=== PATIENT | female | born 1965 ===

== ENCOUNTER 2018-04-17 23:35 | Emergency (ER) | payer BC ==
[2018-04-17 23:44] VITALS: PULSE 59; RESP 22; TEMP 97.7; O2SAT 95
[2018-04-18 00:08] VITALS: BP 178/104
--- NOTE | 2018-04-18 00:20 | C.PDOC ---
History Of Present Illness 52 year old female was cutting a salad and cut her left index and middle fingers. Denies weakness or numbness. Time Seen by Provider: 04/18/18 00:05 Chief Complaint (Nursing): Abnormal Skin Integrity History Per: Patient History/Exam Limitations: no limitations Onset/Duration Of Symptoms: Hrs Current Symptoms Are (Timing): Still Present Location Of Injury: Left: Hand (Index and middle fingers) Quality Of Symptoms: Other (Laceration) Recent travel outside of the [place]: No Past Medical History Reviewed: Historical Data, Nursing Documentation, Vital Signs Vital Signs: Last Vital Signs Temp 97.7 F 04/17/18 23:38 Pulse 59 L 04/17/18 23:38 Resp 22 04/17/18 23:38 BP 195/114 H 04/17/18 23:38 Pulse Ox 95 04/17/18 23:38 - Medical History PMH: HTN Denies: Chronic Kidney Disease - [facility] Procedures PERCUTAN NEEDLE BIOPSY OF BREAST (10/23/13) Family History: States: No Known Family Hx - Social History Hx Alcohol Use: No Hx Substance Use: No - Immunization History Hx Tetanus Toxoid Vaccination: No Hx Influenza Vaccination: No Hx Pneumococcal Vaccination: No Review Of Systems Skin: Positive for: Other (Lacerations) Neurological: Negative for: Weakness, Numbness Physical Exam - Physical Exam Appears: Non-toxic Skin: Warm, Dry Extremity: Capillary Refill (<2 seconds), Other (1cm lacerations to fat pad left index and middle finger. No nailbed involvement.) Pulses: Left Radial: Normal, Right Radial: Normal Neurological/Psych: Oriented x3, Normal Speech, Normal Cranial Nerves (Grossly intact), Normal Motor, Normal Sensation ED Course And Treatment O2 Sat by Pulse Oximetry: 95 (Room air) Pulse Ox Interpretation: Normal Laceration - Laceration Repair Left middle finger Wound Length (In cm): 1 Description Of Wound: Linear Wound Cleansed With: Sterile Saline Anesthesia: Lidocaine 1% Wound Examination: Irrigated With Saline, No FB With Wound Exploration, No Tendon Injury With Wound Exploration Wound Closure: Suture Suture Technique And Material Used: Interrupted, Nylon (5-0) Wound Complexity: Simple Left index finger Wound Length (In cm): 1 Description Of Wound: Linear Wound Cleansed With: Sterile Saline Wound Examination: Irrigated With Saline, No FB With Wound Exploration, No Tendon Injury With Wound Exploration Wound Closure: Skin Glue (Dermabond) Wound Complexity: Simple Medical Decision Making Medical Decision Making: Patient instructed to follow up in 12-14 days for suture removal. Disposition Counseled Patient/Family Regarding: Diagnosis, Need For Followup - Disposition Disposition: HOME/ ROUTINE Disposition Time: 00:27 Condition: IMPROVED Additional Instructions: Return in 10-12 days for suture removal. Return sooner if you start to develop signs of infection such as increased redness, increased pain, swelling, or drainage. Instructions: Laceration Repair With Stitches (DC) Forms: [employer] (Setswana), General Discharge Instructions - Clinical Impression Clinical Impression: Laceration of finger of left hand - PA / CRISIS INTERVENTION SPECIALIST / Resident Statement MD/DO has reviewed & agrees with the documentation as recorded. - Scribe Statement The provider has reviewed the documentation as recorded by the Scribe Juan Ramon Segovia All medical record entries made by the [employer] were at my direction and personally dictated by me. I have reviewed the chart and agree that the record accurately reflects my personal performance of the history, physical exam, medical decision making, and the department course for this patient. I have also personally directed, reviewed, and agree with the discharge instructions and disposition.
== END 2018-04-18 00:52 | disposition home or self-care (01) ==
LOC: C.ER 23:35
DX: S61.211A Laceration without foreign body of left index finger without damage to nail, initial encounter (principal); S61.213A Laceration without foreign body of left middle finger without damage to nail, initial encounter; W26.0XXA Contact with knife, initial encounter